=== PATIENT | female | born 1985 | race Hispanic/Latino ===

== ENCOUNTER 2018-12-18 10:45 | Inpatient (IN) | payer OTHER ==
[2018-12-18 10:49] VITALS: BMI 17.7
--- NOTE | 2018-12-18 11:12 | ED PDOC ---
HPI: Seizure Time Seen by Provider: 12/18/18 10:59 Chief Complaint (Nursing): Seizure Chief Complaint (Provider): seizure History Per: Patient History/Exam Limitations: no limitations Recent Seizure Activity Began: Just Before Arrival Number Of Seizures: One Length Of Seizures (Duration): Minutes (2) Quality Of Seizure: Generalized Precipitating Factor(s): Other (possible etoh withdrawal) Associated Symptoms: denies: Injury As A Result Of Seizure Activity Severity: Moderate Additional Complaint(s): 33yo female states stopped drinking tuesday, her uncle was driving her to an outpatient rehab this morning when she had a seizure in the passenger seat of car, lasted approx 2 min, prior to seizure has perioral tingling then following seizure had confusion, now back to baseline. Denies injury or trauma from seizure. Denies drug use. Last drink was tuesday, prior to that heavy drinking for approx one week. Denies current headache, neck pain, extremity pain, abd pain or back pain. Past Medical History Reviewed: Historical Data, Nursing Documentation, Vital Signs Vital Signs: Last Vital Signs Temp 99.3 F 12/18/18 10:48 Pulse 111 H 12/18/18 10:48 Resp 20 12/18/18 10:48 BP 134/56 L 12/18/18 10:48 Pulse Ox 100 12/18/18 10:48 Primary Care Provider: FAMILY PROVIDER,NO - Medical History PMH: Anxiety, Depression - Surgical History Other surgeries: liver cancer surgery 5yrs ago, cleared - Family History Family History: States: Unknown Family Hx - Social History Current smoker - smoking cessation education provided: Yes Alcohol: > 2 Drinks/Day - Immunization History Hx Tetanus Toxoid Vaccination: Yes Hx Influenza Vaccination: No Hx Pneumococcal Vaccination: No - Home Medications Home Medications: Ambulatory Orders Medication Instructions Recorded No Known Home Med 12/18/18 - Allergies Allergies/Adverse Reactions: Allergies Allergy/AdvReac Type Severity Reaction Status Date / Time No Known Allergies Allergy Unverified 11/23/18 18:57 Review of Systems Constitutional: Negative for: Fever ENT: Negative for: Throat Pain Cardiovascular: Negative for: Chest Pain Respiratory: Negative for: Shortness of Breath Gastrointestinal: Negative for: Abdominal Pain Genitourinary Female: Negative for: Dysuria Skin: Negative for: Rash, Lesions Neurological: Positive for: Seizures, Dizziness. Negative for: Weakness, Numbness, Headache Physical Exam - Reviewed Nursing Documentation Reviewed: Yes Vital Signs Reviewed: Yes - Physical Exam Appears: Positive for: Non-toxic, No Acute Distress Head Exam: Positive for: ATRAUMATIC, NORMAL INSPECTION, NORMOCEPHALIC Skin: Positive for: Normal Color, Warm, DRY Eye Exam: Positive for: EOMI, Normal appearance, PERRL ENT: Positive for: Normal ENT Inspection Neck: Positive for: Normal, Painless ROM Cardiovascular/Chest: Positive for: Regular Rate, Rhythm Respiratory: Positive for: CNT, Normal Breath Sounds Gastrointestinal/Abdominal: Positive for: Soft. Negative for: Tenderness, Guarding Back: Positive for: Normal Inspection Extremity: Positive for: Normal ROM Neurological/Psych: Positive for: Awake, Alert, Normal Tone - Laboratory Results Result Diagrams: 12/18/18 11:30 12/18/18 11:30 - ECG ECG: Positive for: Interpreted By Sd ECG Rhythm: Positive for: Normal QRS, Normal ST Segment, Sinus Rhythm Rate: 99 O2 Sat by Pulse Oximetry: 100 Pulse Ox Interpretation: Normal - Radiology X-Ray: Interpreted by Sd X-Ray Interpretation: No Acute Disease Medical Decision Making Medical Decision Making: workup for new onset seizure in setting of alcohol abuse/dependence with recent cessation of etoh, likely etoh withdrawal seizure CT brain labs EKG seizure precautions Ativan 1mg IV ordered approx 140p alerted by RN that patient actively seizing, found patient genera lized tonic clonic seizure lasting approx 90seconds, SPO2 94%, return to baseline over several minutes, confused but denies extremity pain, notes headache. CIWA score 10 CT brain report reviewed additional ativan 1mg and tylenol ordered admit Dr Bonds for recurrent seizures neuro Dr Salmeron consulted Patient and uncle updated on findings and recommendations, questions answered, she requested social work eval for warm handoff to her [facility] rehab program. approx 545p pt due to go to floor, alerted by RN she has fever, sepsis workup initiated, lactate normal On exam, she now has visible aniscoria R>L pupils with sluggish reaction. She notes headache when she coughs, denies change vision, neck pain, photophobia and is alert/oriented. Mother arrived and updated after patient permission. Discussed with Dr Salmeron, rec repeat CT and CTA r/o SAH and consider LP given recurrent seizures now fever. 1934 FINDINGS: VASCULATURE: NECK: COMMON CAROTID ARTERIES No significant canal stenosis. No dissection or occlusion. EXTERNAL CAROTID ARTERIES Patent. NECK: INTERNAL CAROTID ARTERIES No stenosis by NASCET criteria. No dissection or occlusion. VERTEBRAL ARTERIES No significant canal stenosis. No dissection or occlusion. HEAD: ANTERIOR CEREBRAL ARTERIES No significant stenosis. No occlusion. No aneurysm. MIDDLE CEREBRAL ARTERIES No significant stenosis. No occlusion. No aneurysm. POSTERIOR CEREBRAL ARTERIES No significant stenosis. No occlusion. No aneurysm. BASILAR ARTERY No significant stenosis. No occlusion. No aneurysm. OTHER: SOFT TISSUES No acute finding. BONES No acute osseous abnormality. IMPRESSION: Unremarkable CTA of the head and neck. Procedure note Lumbar puncture indication - fever, seizure, aniscoria d/w neurology, agrees w plan consent obtained from patient after risks benefits alternatives explained patient is AAOx3 and mother also in room, agrees w plan using sterile technique, chlorhexidine then betadine rinse, L3L4 interspace anesthetized w 4ml lidocaine spinal needle inserted w immediate return of CSF, clear, 4 tubes collected patient placed supine CSF Sent to lab CXR negative for infiltrate UA negative for leuks or WBC Dr Bonds updated on plan Dr Archer to initiate Abx based on CSF results Dr Ellison to eval for need for ICU overnight in ED 830p critical care time 70minutes excluding procedures patient required immediate recurrent bedside attention due to recurrent seizures, then fever r/o sepsis, meningitis Disposition - Clinical Impression Clinical Impression: Alcohol withdrawal seizure, Recurrent seizures, Fever - Patient ED Disposition Is Patient to be Admitted: Yes Counseled Patient/Family Regarding: Studies Performed, Diagnosis, Need For Followup - Disposition Disposition Time: 13:00 Condition: FAIR - Pt Status Changed To: Hospital Disposition Of: Inpatient - Admit Certification Admit to Inpatient:: After my assessment, the patient will require hospitalization for at least two midnights. This is because of the severity of symptoms shown, intensity of services needed, and/or the medical risk in this patient being treated as an outpatient. - POA Present On Arrival: None
[2018-12-18 12:00] LABS: PARTIAL THROMBOPLASTIN TIME 31.3 Seconds (25.6-37.1)
[2018-12-18 12:01] LABS: BASO % 1.1 % (0.0-2.0); EOS % 0.3 % (0.0-4.0); HEMOGLOBIN 13.1 g/dL (12.0-16.0); LYMPH # 0.4 K/uL (1.0-4.3); MEAN CELL VOLUME 89.4 fl (81.0-99.0); MEAN CORPUSCULAR HEMOGLOBIN 29.6 pg (27.0-31.0); MEAN CORPUSCULAR HGB CONC 33.2 g/dL (33.0-37.0); MEAN PLATELET VOLUME 6.8 fl (7.2-11.7); MONO # 0.6 K/uL (0.0-0.8); MONO % 14.9 % (0.0-10.0); NEUT # 2.9 K/uL (1.8-7.0); NEUT % 73.7 % (50.0-75.0); RBC 4.42 Mil/uL (3.80-5.20); RED CELL DISTRIBUTION WIDTH 15.7 % (11.5-14.5)
[2018-12-18 12:03] LABS: ALB/GLOB RATIO 1.6 (1.0-2.1); ALBUMIN 4.7 g/dL (3.5-5.0); ALT/SGPT 36 U/L (9-52); AST/SGOT 52 U/L (14-36); BLOOD UREA NITROGEN 3 mg/dl (7-17); CALCIUM 9.2 mg/dL (8.4-10.2); GFR NON-AFRICAN AMERICAN > 60; LIPASE 300 U/L (23-300)
--- NOTE | 2018-12-18 12:05 | CT ---
Date of service: 12/18/2018 PROCEDURE: CT HEAD WITHOUT CONTRAST. HISTORY: new onset seizure etoh abuse COMPARISON: None available. TECHNIQUE: Axial computed tomography images were obtained through the head/brain without intravenous contrast. Radiation dose: Total exam DLP = 802.63 mGy-cm. This CT exam was performed using one or more of the following dose reduction techniques: Automated exposure control, adjustment of the mA and/or kV according to patient size, and/or use of iterative reconstruction technique. FINDINGS: HEMORRHAGE: No intracranial hemorrhage. BRAIN: Normal mendoza-white matter differentiation and density are appreciated throughout the cerebrum and cerebellum with the brainstem appearing unremarkable as well. There is no mass effect. There is no suspicious extra-axial fluid collection and the midline brain anatomy appears diffusely unremarkable. VENTRICLES: Unremarkable. No hydrocephalus. CALVARIUM: No destructive bony lesion or displaced fracture identified including through the skullbase. PARANASAL SINUSES: Unremarkable as visualized. No significant inflammatory changes. MASTOID AIR CELLS: Unremarkable as visualized. No inflammatory changes. OTHER FINDINGS: None. IMPRESSION: Unremarkable unenhanced head CT.
[2018-12-18 18:11] LABS: SQUAMOUS EPITHIAL < 1 /hpf (0-5); URINE BACTERIA RARE (<OCC); URINE BILIRUBIN NEGATIVE (NEGATIVE); URINE BLOOD NEGATIVE (NEGATIVE); URINE CLARITY CLOUDY (Clear); URINE COLOR YELLOW (YELLOW); URINE GLUCOSE (UA) NEG (NEGATIVE); URINE LEUKOCYTE ESTERASE NEG Leu/uL (Negative); URINE PROTEIN 100 mg/dL (NEGATIVE); URINE UROBILINOGEN 0.2-1.0 mg/dL (0.2-1.0)
[2018-12-18 18:15] LABS: VENOUS BLOOD GAS BASE EXCESS 0.4 mmol/L (0.0-2.0); VENOUS BLOOD GAS PCO2 30 mmHg (40-60); VENOUS BLOOD GAS PO2 57 mm/Hg (30-55); VENOUS BLOOD PH 7.49 (7.32-7.43)
[2018-12-18] MEDS ORDERED: Iodixanol 320 MG/ML 100 ML BOTTLE IV ONE (18:27)
[2018-12-18] MEDS ORDERED: Sodium Chloride 0.9% 50 ML IV ONE (18:27)
--- NOTE | 2018-12-18 18:56 | CT ---
Date of service: 12/18/2018 PROCEDURE: CT HEAD WITHOUT CONTRAST. HISTORY: recurrent seizure, aniscoria, fever COMPARISON: None available. TECHNIQUE: Axial computed tomography images were obtained through the head/brain without intravenous contrast. Radiation dose: Total exam DLP = 806.5 mGy-cm. This CT exam was performed using one or more of the following dose reduction techniques: Automated exposure control, adjustment of the mA and/or kV according to patient size, and/or use of iterative reconstruction technique. FINDINGS: HEMORRHAGE: No intracranial hemorrhage. BRAIN: No mass effect or edema. The mendoza-white matter differentiation appears intact. Please note that MRI with diffusion imaging is more sensitive in the detection of acute ischemic event. VENTRICLES: No hydrocephalus. CALVARIUM: Unremarkable. PARANASAL SINUSES: Unremarkable as visualized. No significant inflammatory changes. MASTOID AIR CELLS: Unremarkable as visualized. No inflammatory changes. OTHER FINDINGS: None. IMPRESSION: No acute intracranial pathology identified.
[2018-12-18] MEDS ORDERED: Sodium Chloride 0.9% 1,000 ML IV STA (20:25)
[2018-12-18 20:44] LABS: FLUID TYPE SPINAL FLUID
[2018-12-18 20:59] LABS: CSF APPEARANCE CLEAR/COLORLESS (CLEAR); CSF VOLUME 1 mL (0-1)
[2018-12-18] MEDS ORDERED: Piperacillin/Tazobact 3.375 GM in Sodium Chloride 0.9% 100 ML IVPB STA (21:19)
[2018-12-18] MEDS ORDERED: Piperacillin/Tazobact 3.375 gm Inj IVPB ONE (21:38)
--- NOTE | 2018-12-18 23:13 | CP.CCUPN ---
CCU Subjective - Physician Review Events Since Last Encounter (Free Text): 12/18/18 22:57 33 yo CF with hx of heavy alcohol use stopped drinking last Tuesday and was in the car with family member to rehab when she had a witnessed 2 min GTC seizure following which she was confused. Upon arrival to ED pretty much back to normal; however, while awaiting floor bed had another episode of GTC seizure requiring IV Ativan and also spiked temp of 101.4 F and became tachycardic to 130s/min. LP was done and critical care eval was requested by admitting physician. Had a couple of negative CT scans of head without contrast. CTA head and neck also came back negative. CXR I personally reviewed did not reveal any acute patholo gy. Upon my assessment patient is slightly drowsy but arousible and AAOx3 and neuro-exam completely non-focal. Only c/o mild headache after LP. LP results normal. Re-assessed her in the ED. Stable and exam unchanged. My impression is Seizure in the context of EtOH withdrawal. No evidence of DTs at this time. No need for ICU. Can be admitted to tele floor. Needs frequent neuro-checks and seizure precautions. Agree with BZD. As far as sepsis no clear source at this time. On exam has faint crackles over RLL. Possible aspiration. Agree with Jewels for now and ID consult to assist with antibiotic therapy. Mother at bedside and findings and plan was discussed with her. I spent total of 33 min of critical care time today excluding time spent for any procedures. Critical Care Time Spent (in minutes): 33 CCU Objective - Vital Signs / Intake & Output Vital Signs (Last 4 hours): Vital Signs Temp Pulse Resp BP Pulse Ox 12/18/18 20:38 99 H 100 12/18/18 19:30 98.3 F 109 H 18 112/66 100 12/18/18 19:00 101 F H 119 H 18 119/68 100 Intake and Output (Last 8hrs): Intake & Output 12/18/18 12/18/18 12/18/18 06:59 14:59 22:59 Weight 110 lb - Medications Active Medications: Active Medications Generic Name Dose Route Start Last Admin Trade Name Freq PRN Reason Stop Dose Admin Sodium Chloride 1,000 mls @ 150 mls/hr 12/18/18 20:25 12/18/18 21:51 Sodium Chloride 0.9% IV 12/19/18 03:04 150 mls/hr .[id number] STA Administration - Patient Studies Lab Studies: Microbiology Studies 12/18/18 20:38 Gram Stain - Preliminary Cerebral Spinal Fluid Lab Studies 12/18/18 12/18/18 12/18/18 Range/Units 20:38 20:38 18:13 WBC (4.8-10.8) K/uL RBC (3.80-5.20) Mil/uL Hgb (12.0-16.0) g/dL Hct (34.0-47.0) % MCV (81.0-99.0) fl MCH (27.0-31.0) pg MCHC (33.0-37.0) g/dL RDW (11.5-14.5) % Plt Count (130-400) K/uL MPV (7.2-11.7) fl Neut % (Auto) (50.0-75.0) % Lymph % (Auto) (20.0-40.0) % Cannon % (Auto) (0.0-10.0) % Eos % (Auto) (0.0-4.0) % Baso % (Auto) (0.0-2.0) % Neut # (Auto) (1.8-7.0) K/uL Lymph # (Auto) (1.0-4.3) K/uL Cannon # (Auto) (0.0-0.8) K/uL Eos # (Auto) (0.0-0.7) K/uL Baso # (Auto) (0.0-0.2) K/uL PT (9.8-13.1) Seconds INR APTT (25.6-37.1) Seconds pO2 57 H (30-55) mm/Hg VBG pH 7.49 H (7.32-7.43) VBG pCO2 30 L (40-60) mmHg VBG HCO3 25.1 mmol/L VBG Total CO2 23.8 (22-28) mmol/L VBG O2 Sat (Calc) 95.0 H (40-65) % VBG Base Excess 0.4 (0.0-2.0) mmol/L VBG Potassium 3.5 L (3.6-5.2) mmol/L Glucose 114 H (65-105) mg/dL Lactate 0.9 (0.7-2.1) mmol/L FiO2 21.0 % Sodium 132.0 (132-148) mmol/l Potassium (3.6-5.0) MMOL/L Chloride 100.0 (98-107) mmol/L Carbon Dioxide (22-30) mmol/L Anion Gap (10-20) BUN (7-17) mg/dl Creatinine (0.7-1.2) mg/dl Est GFR ( Amer) Est GFR (Non-Af Amer) POC Glucose (mg/dL) (65-110) mg/dL Random Glucose (65-105) mg/dL Calcium (8.4-10.2) mg/dL Total Bilirubin (0.2-1.3) mg/dl AST (14-36) U/L ALT (9-52) U/L Alkaline Phosphatase (38-126) U/L Troponin I (0.00-0.120) ng/mL Total Protein (6.3-8.2) G/DL Albumin (3.5-5.0) g/dL Globulin (2.2-3.9) gm/dL Albumin/Globulin Ratio (1.0-2.1) Lipase (23-300) U/L Venous Blood Potassium 3.5 L (3.6-5.2) mmol/L Urine Color (YELLOW) Urine Clarity (Clear) Urine pH (5.0-8.0) Ur Specific Holcomb (1.003-1.030) Urine Protein (NEGATIVE) mg/dL Urine Glucose (UA) (NEGATIVE) mg/dL Urine Ketones (NEGATIVE) mg/dL Urine Blood (NEGATIVE) Urine Nitrate (NEGATIVE) Urine Bilirubin (NEGATIVE) Urine Urobilinogen (0.2-1.0) mg/dL Ur Leukocyte Esterase (Negative) Nikko/uL Urine RBC (Auto) (0-3) /hpf Urine Microscopic WBC (0-5) /hpf Ur Squamous Epith Cells (0-5) /hpf Urine Bacteria (<OCC) Hyaline Casts (0-2) /hpf Fluid Type Spinal fluid CSF Volume 1 (0-1) mL CSF Appearance Clear/colorless (CLEAR) CSF WBC 0.0 (0.0-5.0) /mm3 CSF RBC 0.0 (0.0-0.0) /mm3 CSF Total Cell Counted 0 (0-0) CSF Monos/Macrophages TEST NOT PERFORMED CSF Comment Normal CSF Glucose 70 (40-70) mg/dL CSF Total Protein 26.0 (12-60) mg/dL Alcohol, Quantitative (0-10) mg/dl 12/18/18 12/18/18 12/18/18 Range/Units 17:50 11:30 11:30 WBC 4.0 L (4.8-10.8) K/uL RBC 4.42 (3.80-5.20) Mil/uL Hgb 13.1 (12.0-16.0) g/dL Hct 39.5 (34.0-47.0) % MCV 89.4 (81.0-99.0) fl MCH 29.6 (27.0-31.0) pg MCHC 33.2 (33.0-37.0) g/dL RDW 15.7 H (11.5-14.5) % Plt Count 231 (130-400) K/uL MPV 6.8 L (7.2-11.7) fl Neut % (Auto) 73.7 (50.0-75.0) % Lymph % (Auto) 10.0 L (20.0-40.0) % Cannon % (Auto) 14.9 H (0.0-10.0) % Eos % (Auto) 0.3 (0.0-4.0) % Baso % (Auto) 1.1 (0.0-2.0) % Neut # (Auto) 2.9 (1.8-7.0) K/uL Lymph # (Auto) 0.4 L (1.0-4.3) K/uL Cannon # (Auto) 0.6 (0.0-0.8) K/uL Eos # (Auto) 0.0 (0.0-0.7) K/uL Baso # (Auto) 0.0 (0.0-0.2) K/uL PT 11.0 (9.8-13.1) Seconds INR 1.0 APTT 31.3 (25.6-37.1) Seconds pO2 (30-55) mm/Hg VBG pH (7.32-7.43) VBG pCO2 (40-60) mmHg VBG HCO3 mmol/L VBG Total CO2 (22-28) mmol/L VBG O2 Sat (Calc) (40-65) % VBG Base Excess (0.0-2.0) mmol/L VBG Potassium (3.6-5.2) mmol/L Glucose (65-105) mg/dL Lactate (0.7-2.1) mmol/L FiO2 % Sodium (132-148) mmol/l Potassium (3.6-5.0) MMOL/L Chloride (98-107) mmol/L Carbon Dioxide (22-30) mmol/L Anion Gap (10-20) BUN (7-17) mg/dl Creatinine (0.7-1.2) mg/dl Est GFR ( Amer) Est GFR (Non-Af Amer) POC Glucose (mg/dL) (65-110) mg/dL Random Glucose (65-105) mg/dL Calcium (8.4-10.2) mg/dL Total Bilirubin (0.2-1.3) mg/dl AST (14-36) U/L ALT (9-52) U/L Alkaline Phosphatase (38-126) U/L Troponin I (0.00-0.120) ng/mL Total Protein (6.3-8.2) G/DL Albumin (3.5-5.0) g/dL Globulin (2.2-3.9) gm/dL Albumin/Globulin Ratio (1.0-2.1) Lipase (23-300) U/L Venous Blood Potassium (3.6-5.2) mmol/L Urine Color Yellow (YELLOW) Urine Clarity Cloudy (Clear) Urine pH 9.0 (5.0-8.0) Ur Specific Holcomb 1.010 (1.003-1.030) Urine Protein 100 (NEGATIVE) mg/dL Urine Glucose (UA) Neg (NEGATIVE) mg/dL Urine Ketones Negative (NEGATIVE) mg/dL Urine Blood Negative (NEGATIVE) Urine Nitrate Negative (NEGATIVE) Urine Bilirubin Negative (NEGATIVE) Urine Urobilinogen 0.2-1.0 (0.2-1.0) mg/dL Ur Leukocyte Esterase Neg (Negative) Nikko/uL Urine RBC (Auto) 1 (0-3) /hpf Urine Microscopic WBC 1 (0-5) /hpf Ur Squamous Epith Cells < 1 (0-5) /hpf Urine Bacteria Rare (<OCC) Hyaline Casts 6-10 H (0-2) /hpf Fluid Type CSF Volume (0-1) mL CSF Appearance (CLEAR) CSF WBC (0.0-5.0) /mm3 CSF RBC (0.0-0.0) /mm3 CSF Total Cell Counted (0-0) CSF Monos/Macrophages CSF Comment CSF Glucose (40-70) mg/dL CSF Total Protein (12-60) mg/dL Alcohol, Quantitative (0-10) mg/dl 12/18/18 12/18/18 Range/Units 11:30 11:03 WBC (4.8-10.8) K/uL RBC (3.80-5.20) Mil/uL Hgb (12.0-16.0) g/dL Hct (34.0-47.0) % MCV (81.0-99.0) fl MCH (27.0-31.0) pg MCHC (33.0-37.0) g/dL RDW (11.5-14.5) % Plt Count (130-400) K/uL MPV (7.2-11.7) fl Neut % (Auto) (50.0-75.0) % Lymph % (Auto) (20.0-40.0) % Cannon % (Auto) (0.0-10.0) % Eos % (Auto) (0.0-4.0) % Baso % (Auto) (0.0-2.0) % Neut # (Auto) (1.8-7.0) K/uL Lymph # (Auto) (1.0-4.3) K/uL Cannon # (Auto) (0.0-0.8) K/uL Eos # (Auto) (0.0-0.7) K/uL Baso # (Auto) (0.0-0.2) K/uL PT (9.8-13.1) Seconds INR APTT (25.6-37.1) Seconds pO2 (30-55) mm/Hg VBG pH (7.32-7.43) VBG pCO2 (40-60) mmHg VBG HCO3 mmol/L VBG Total CO2 (22-28) mmol/L VBG O2 Sat (Calc) (40-65) % VBG Base Excess (0.0-2.0) mmol/L VBG Potassium (3.6-5.2) mmol/L Glucose (65-105) mg/dL Lactate (0.7-2.1) mmol/L FiO2 % Sodium 134 (132-148) mmol/l Potassium 3.5 L (3.6-5.0) MMOL/L Chloride 97 L (98-107) mmol/L Carbon Dioxide 28 (22-30) mmol/L Anion Gap 13 (10-20) BUN 3 L (7-17) mg/dl Creatinine 0.5 L (0.7-1.2) mg/dl Est GFR ( Amer) > 60 Est GFR (Non-Af Amer) > 60 POC Glucose (mg/dL) 131 H (65-110) mg/dL Random Glucose 101 (65-105) mg/dL Calcium 9.2 (8.4-10.2) mg/dL Total Bilirubin 1.0 (0.2-1.3) mg/dl AST 52 H (14-36) U/L ALT 36 (9-52) U/L Alkaline Phosphatase 77 (38-126) U/L Troponin I < 0.0120 (0.00-0.120) ng/mL Total Protein 7.5 (6.3-8.2) G/DL Albumin 4.7 (3.5-5.0) g/dL Globulin 2.8 (2.2-3.9) gm/dL Albumin/Globulin Ratio 1.6 (1.0-2.1) Lipase 300 (23-300) U/L Venous Blood Potassium (3.6-5.2) mmol/L Urine Color (YELLOW) Urine Clarity (Clear) Urine pH (5.0-8.0) Ur Specific Holcomb (1.003-1.030) Urine Protein (NEGATIVE) mg/dL Urine Glucose (UA) (NEGATIVE) mg/dL Urine Ketones (NEGATIVE) mg/dL Urine Blood (NEGATIVE) Urine Nitrate (NEGATIVE) Urine Bilirubin (NEGATIVE) Urine Urobilinogen (0.2-1.0) mg/dL Ur Leukocyte Esterase (Negative) Nikko/uL Urine RBC (Auto) (0-3) /hpf Urine Microscopic WBC (0-5) /hpf Ur Squamous Epith Cells (0-5) /hpf Urine Bacteria (<OCC) Hyaline Casts (0-2) /hpf Fluid Type CSF Volume (0-1) mL CSF Appearance (CLEAR) CSF WBC (0.0-5.0) /mm3 CSF RBC (0.0-0.0) /mm3 CSF Total Cell Counted (0-0) CSF Monos/Macrophages CSF Comment CSF Glucose (40-70) mg/dL CSF Total Protein (12-60) mg/dL Alcohol, Quantitative < 10 (0-10) mg/dl Laboratory Results - last 24 hr 12/18/18 12/18/18 12/18/18 11:03 11:30 11:30 WBC 4.0 L RBC 4.42 Hgb 13.1 Hct 39.5 MCV 89.4 MCH 29.6 MCHC 33.2 RDW 15.7 H Plt Count 231 MPV 6.8 L Neut % (Auto) 73.7 Lymph % (Auto) 10.0 L Cannon % (Auto) 14.9 H Eos % (Auto) 0.3 Baso % (Auto) 1.1 Neut # (Auto) 2.9 Lymph # (Auto) 0.4 L Cannon # (Auto) 0.6 Eos # (Auto) 0.0 Baso # (Auto) 0.0 PT INR APTT pO2 VBG pH VBG pCO2 VBG HCO3 VBG Total CO2 VBG O2 Sat (Calc) VBG Base Excess VBG Potassium Glucose Lactate FiO2 Sodium 134 Potassium 3.5 L Chloride 97 L Carbon Dioxide 28 Anion Gap 13 BUN 3 L Creatinine 0.5 L Est GFR ( Amer) > 60 Est GFR (Non-Af Amer) > 60 POC Glucose (mg/dL) 131 H Random Glucose 101 Calcium 9.2 Total Bilirubin 1.0 AST 52 H ALT 36 Alkaline Phosphatase 77 Troponin I < 0.0120 Total Protein 7.5 Albumin 4.7 Globulin 2.8 Albumin/Globulin Ratio 1.6 Lipase 300 Venous Blood Potassium Urine Color Urine Clarity Urine pH Ur Specific Holcomb Urine Protein Urine Glucose (UA) Urine Ketones Urine Blood Urine Nitrate Urine Bilirubin Urine Urobilinogen Ur Leukocyte Esterase Urine RBC (Auto) Urine Microscopic WBC Ur Squamous Epith Cells Urine Bacteria Hyaline Casts Fluid Type CSF Volume CSF Appearance CSF WBC CSF RBC CSF Total Cell Counted CSF Monos/Macrophages CSF Comment CSF Glucose CSF Total Protein Alcohol, Quantitative < 10 12/18/18 12/18/18 12/18/18 11:30 17:50 18:13 WBC RBC Hgb Hct MCV MCH MCHC RDW Plt Count MPV Neut % (Auto) Lymph % (Auto) Cannon % (Auto) Eos % (Auto) Baso % (Auto) Neut # (Auto) Lymph # (Auto) Cannon # (Auto) Eos # (Auto) Baso # (Auto) PT 11.0 INR 1.0 APTT 31.3 pO2 57 H VBG pH 7.49 H VBG pCO2 30 L VBG HCO3 25.1 VBG Total CO2 23.8 VBG O2 Sat (Calc) 95.0 H VBG Base Excess 0.4 VBG Potassium 3.5 L Glucose 114 H Lactate 0.9 FiO2 21.0 Sodium 132.0 Potassium Chloride 100.0 Carbon Dioxide Anion Gap BUN Creatinine Est GFR ( Amer) Est GFR (Non-Af Amer) POC Glucose (mg/dL) Random Glucose Calcium Total Bilirubin AST ALT Alkaline Phosphatase Troponin I Total Protein Albumin Globulin Albumin/Globulin Ratio Lipase Venous Blood Potassium 3.5 L Urine Color Yellow Urine Clarity Cloudy Urine pH 9.0 Ur Specific Holcomb 1.010 Urine Protein 100 Urine Glucose (UA) Neg Urine Ketones Negative Urine Blood Negative Urine Nitrate Negative Urine Bilirubin Negative Urine Urobilinogen 0.2-1.0 Ur Leukocyte Esterase Neg Urine RBC (Auto) 1 Urine Microscopic WBC 1 Ur Squamous Epith Cells < 1 Urine Bacteria Rare Hyaline Casts 6-10 H Fluid Type CSF Volume CSF Appearance CSF WBC CSF RBC CSF Total Cell Counted CSF Monos/Macrophages CSF Comment CSF Glucose CSF Total Protein Alcohol, Quantitative 12/18/18 12/18/18 20:38 20:38 WBC RBC Hgb Hct MCV MCH MCHC RDW Plt Count MPV Neut % (Auto) Lymph % (Auto) Cannon % (Auto) Eos % (Auto) Baso % (Auto) Neut # (Auto) Lymph # (Auto) Cannon # (Auto) Eos # (Auto) Baso # (Auto) PT INR APTT pO2 VBG pH VBG pCO2 VBG HCO3 VBG Total CO2 VBG O2 Sat (Calc) VBG Base Excess VBG Potassium Glucose Lactate FiO2 Sodium Potassium Chloride Carbon Dioxide Anion Gap BUN Creatinine Est GFR ( Amer) Est GFR (Non-Af Amer) POC Glucose (mg/dL) Random Glucose Calcium Total Bilirubin AST ALT Alkaline Phosphatase Troponin I Total Protein Albumin Globulin Albumin/Globulin Ratio Lipase Venous Blood Potassium Urine Color Urine Clarity Urine pH Ur Specific Holcomb Urine Protein Urine Glucose (UA) Urine Ketones Urine Blood Urine Nitrate Urine Bilirubin Urine Urobilinogen Ur Leukocyte Esterase Urine RBC (Auto) Urine Microscopic WBC Ur Squamous Epith Cells Urine Bacteria Hyaline Casts Fluid Type Spinal fluid CSF Volume 1 CSF Appearance Clear/colorless CSF WBC 0.0 CSF RBC 0.0 CSF Total Cell Counted 0 CSF Monos/Macrophages TEST NOT PERFORMED CSF Comment Normal CSF Glucose 70 CSF Total Protein 26.0 Alcohol, Quantitative Radiology Impressions: Radiology Impressions Head CT 12/18/18 11:08 IMPRESSION: Unremarkable unenhanced head CT. Head CT 12/18/18 18:00 IMPRESSION: No acute intracranial pathology identified. Fingerstick Blood Sugar Results: 131
[2018-12-19] MEDS ORDERED: Sodium Chloride 0.9% 1,000 ML IV SCH (01:30)
[2018-12-19 04:40] VITALS: RESP 18
--- NOTE | 2018-12-19 05:38 | HP ---
HISTORY OF PRESENT ILLNESS: The patient is a 33-year-old female with no significant past medical history. The patient has been drinking alcohol heavily for the last one year or so after some social problems. The patient was picked up by her uncle on the day of admission to bring her to an alcohol rehabilitation center. During the ride in the car, the patient had a seizure. The patient was brought to emergency room for evaluation, and she had a second seizure. The patient was treated with Ativan. CAT scan of the head was done that was negative and admitted for alcohol withdrawal seizures. Other review of system is negative. ALLERGIES: NO KNOWN ALLERGIES. MEDICATIONS: None. PAST MEDICAL HISTORY: Not significant. SOCIAL HISTORY: Positive for alcohol abuse. Denied other substance abuse. FAMILY HISTORY: Noncontributory. PHYSICAL EXAMINATION: GENERAL: The patient was lethargic but awake and oriented x2. VITAL SIGNS: Blood pressure 112/74, temperature 98, respiratory rate 17, and pulse 112. HEENT: Pupils are equal and reactive to light. Normal-appearing mucosa of the conjunctivae, oropharynx and nasal membrane mucosa. NECK: Supple. No JVD. No carotid bruit. No lymph node. No thyromegaly. CHEST AND LUNGS: Bilateral symmetrical expansion. Good air exchange. No rales. No rhonchi. CARDIOVASCULAR SYSTEM: PMI not localized. S1, S2. No additional sounds. ABDOMEN: Normoactive bowel sounds. No tenderness. No organomegaly. No masses. EXTREMITIES: No cyanosis. No clubbing. No edema. CENTRAL NERVOUS SYSTEM: Alert, awake, oriented x2 and moves all extremities equally. ASSESSMENT: 1. Alcohol withdrawal seizure. 2. Alcohol abuse. PLAN: We will do seizure precaution and DT precaution. We will give the patient Ativan as needed. Admit the patient to telemetry floor for monitoring. Hari Bonds MD
[2018-12-19] MEDS ORDERED: Pneumococcal 23-Valent Vaccine IM ONE (06:00)
--- NOTE | 2018-12-19 08:31 | RAD ---
Date of service: 12/18/2018 HISTORY: fever COMPARISON: No prior. TECHNIQUE: 1 view obtained. FINDINGS: LUNGS: No active pulmonary disease. PLEURA: No significant pleural effusion identified, no pneumothorax apparent. CARDIOVASCULAR: No aortic atherosclerotic calcification present. Normal cardiac size. No pulmonary vascular congestion. OSSEOUS STRUCTURES: No significant abnormalities. VISUALIZED UPPER ABDOMEN: Incidental excretion of iodinated contrast material is identified at the left kidney with multiple surgical clips identified at the epigastric region in the abdomen. OTHER FINDINGS: None. IMPRESSION: No acute cardiopulmonary disease appreciated.
[2018-12-19] MEDS ORDERED: Multivitamin With Minerals Tab PO SCH (09:00)
--- NOTE | 2018-12-19 10:56 | CP.PCM.CON ---
History of Present Illness - History of Present Illness History of Present Illness: Neurology Consultation Note Consultation Requested by Dr. Patterson Ms. Kumar is a 33 y/o female with a PMHx of Depression, Anxiety, liver tumor (diagnosed at age 16, removed approx 5 years ago), and alcohol abuse. She was admitted to [facility] for an alcohol withdrawal seizure. Pt's seizure was witnessed by her uncle, who was driving her to an outpatient rehab center ([facility]) for ETOH abuse. Per her uncle who is at bedside today, her whole body began to shake, her head was tilted back, and she wouldn't respond to him. This lasted approx 1 minute, and afterwards she woke up confused. Pt admits to biting her bottom lip and the inside of her cheeks. When she came to the ED yesterday, she was back to baseline. Pt and uncle admit that her last drink was on Tuesday (1 glass of wine). She normally drink 2 glasses of wine to 1 bottle of wine per day; she states that some days she drinks heavier than other day. Last week she admits to drinking heavily, including last and Tuesday. Pt states that she has never had a seizure before. She started drinking at age 17. Today she states that she feels body aches and soreness to the bottom lip and inside of her cheeks. She does have a mild h/a but she states it is better than yesterday. She is though awake, alert, follows all commands and is back to her normal baseline. LMP was 3-4 days ago. Non-contrast CT Head and CTA Head and Neck done in the ED reviewed and are both unremarkable. Labs and CSF results reviewed. Pt currently denies dizziness, visual changes, chest pain, palpitations, sob, cough, dysuria, abd pain, n/v/d, fever/chills, paresthesias, tremors/shakiness. Neurology has been called to assist in the management of this pt. Review of Systems - Constitutional Constitutional: As Per HPI - EENT Eyes: As Per HPI Ears: As Per HPI Nose/Mouth/Throat: As Per HPI - Breasts Breasts: As Per HPI - Cardiovascular Cardiovascular: As Per HPI - Respiratory Respiratory: As Per HPI - Gastrointestinal Gastrointestinal: As Per HPI - Genitourinary Genitourinary: As Per HPI - Reproductive: Female Reproductive:Female: As Per HPI - Menstruation Menstruation: As Per HPI - Musculoskeletal Musculoskeletal: As Per HPI - Integumentary Integumentary: As Per HPI - Neurological Neurological: As Per HPI - Psychiatric Psychiatric: As Per HPI - Endocrine Endocrine: As Per HPI - Hematologic/Lymphatic Hematologic: As Per HPI Past Patient History - Infectious Disease Hx of Infectious Diseases: None - Tetanus Immunizations Tetanus Immunization: Unknown - Past Medical History & Family History Past Medical History?: Yes Past Family History: Reviewed and not pertinent - Past Social History Smoking Status: Never Smoked Chewing Tobacco Use: No Cigar Use: No Occupation: unemployed Alcohol: > 2 Drinks/Day Drugs: Denies Home Situation {Lives}: With Family Domestic Violence: Negative - CARDIAC Hx Cardiac Disorders: No - PULMONARY Hx Respiratory Disorders: No - NEUROLOGICAL Hx Neurological Disorder: No - HEENT Hx HEENT Problems: No - RENAL Hx Chronic Kidney Disease: No - ENDOCRINE/METABOLIC Hx Endocrine Disorders: No - HEMATOLOGICAL/ONCOLOGICAL Hx Cancer: Yes (liver tumor) - INTEGUMENTARY Hx Dermatological Problems: No - MUSCULOSKELETAL/RHEUMATOLOGICAL Hx Musculoskeletal Disorders: No Hx Falls: No - GASTROINTESTINAL Hx Gastrointestinal Disorders: No - GENITOURINARY/GYNECOLOGICAL Hx Genitourinary Disorders: No - PSYCHIATRIC Hx Psychophysiologic Disorder: Yes Hx Anxiety: Yes Hx Depression: Yes - SURGICAL HISTORY Other/Comment: Liver resection 5 years ago - ANESTHESIA Hx Anesthesia: Yes Hx Anesthesia Reactions: No Meds Allergies/Adverse Reactions: Allergies Allergy/AdvReac Type Severity Reaction Status Date / Time No Known Allergies Allergy Unverified 11/23/18 18:57 - Medications Medications: Current Medications Sodium Chloride (Sodium Chloride 0.9%) 1,000 mls @ 100 mls/hr IV .Q10H [facility] Stop: 12/20/18 01:25 Last Admin: 12/19/18 01:30 Dose: 100 mls/hr Lorazepam (Ativan) 2 mg IVP Q2 PRN PRN Reason: Agitation Multivitamins/Minerals (Therapeutic-M Tab) 1 tab PO DAILY [facility] Last Admin: 12/19/18 09:15 Dose: 1 tab Thiamine HCl (Vitamin B1 Tab) 100 mg PO DAILY [facility] Last Admin: 12/19/18 09:15 Dose: 100 mg Physical Exam - Constitutional Appears: Well, Non-toxic, No Acute Distress - Head Exam Head Exam: ATRAUMATIC, NORMAL INSPECTION, NORMOCEPHALIC - Eye Exam Eye Exam: EOMI, Normal appearance, PERRL. absent: Nystagmus Pupil Exam: NORMAL ACCOMODATION, PERRL - ENT Exam ENT Exam: Mucous Membranes Moist, Normal Exam Additional comments: bottom lip swollen inside of cheeks bitten - Neck Exam Neck exam: Positive for: Full Rom, Normal Inspection - Respiratory Exam Respiratory Exam: NORMAL BREATHING PATTERN. absent: Respiratory Distress - Cardiovascular Exam Cardiovascular Exam: REGULAR RHYTHM. absent: Tachycardia - GI/Abdominal Exam GI & Abdominal Exam: Normal Bowel Sounds, Soft. absent: Tenderness - Extremities Exam Extremities exam: Positive for: full ROM, normal inspection. Negative for: calf tenderness, pedal edema - Back Exam Back exam: FULL ROM, NORMAL INSPECTION - Neurological Exam Neurological exam: Alert, CN II-XII Intact, Normal Gait, Oriented x3, Reflexes Normal Additional comments: Follows all commands; answers appropriately. Speech clear, fluid. No motor or sensory deficits noted. No tremors or abnormal movements noted. Gait steady. - Psychiatric Exam Psychiatric exam: Normal Affect, Normal Mood - Skin Skin Exam: Dry, Intact, Normal Color Results - Vital Signs Recent Vital Signs: Last Vital Signs Temp 98.0 F 12/19/18 08:10 Pulse 78 12/19/18 08:10 Resp 18 12/19/18 08:10 BP 116/80 12/19/18 08:10 Pulse Ox 98 12/19/18 08:10 - Labs Result Diagrams: 12/18/18 11:30 12/18/18 11:30 Labs: Laboratory Results - last 24 hr 12/18/18 12/18/18 12/18/18 11:03 11:30 11:30 WBC 4.0 L RBC 4.42 Hgb 13.1 Hct 39.5 MCV 89.4 MCH 29.6 MCHC 33.2 RDW 15.7 H Plt Count 231 MPV 6.8 L Neut % (Auto) 73.7 Lymph % (Auto) 10.0 L Sawyer % (Auto) 14.9 H Eos % (Auto) 0.3 Baso % (Auto) 1.1 Neut # (Auto) 2.9 Lymph # (Auto) 0.4 L Sawyer # (Auto) 0.6 Eos # (Auto) 0.0 Baso # (Auto) 0.0 PT INR APTT pO2 VBG pH VBG pCO2 VBG HCO3 VBG Total CO2 VBG O2 Sat (Calc) VBG Base Excess VBG Potassium Glucose Lactate FiO2 Sodium 134 Potassium 3.5 L Chloride 97 L Carbon Dioxide 28 Anion Gap 13 BUN 3 L Creatinine 0.5 L Est GFR ( Amer) > 60 Est GFR (Non-Af Amer) > 60 POC Glucose (mg/dL) 131 H Random Glucose 101 Calcium 9.2 Total Bilirubin 1.0 AST 52 H ALT 36 Alkaline Phosphatase 77 Troponin I < 0.0120 Total Protein 7.5 Albumin 4.7 Globulin 2.8 Albumin/Globulin Ratio 1.6 Lipase 300 Venous Blood Potassium Urine Color Urine Clarity Urine pH Ur Specific Max Urine Protein Urine Glucose (UA) Urine Ketones Urine Blood Urine Nitrate Urine Bilirubin Urine Urobilinogen Ur Leukocyte Esterase Urine RBC (Auto) Urine Microscopic WBC Ur Squamous Epith Cells Urine Bacteria Hyaline Casts Fluid Type CSF Volume CSF Appearance CSF WBC CSF RBC CSF Total Cell Counted CSF Monos/Macrophages CSF Comment CSF Glucose CSF Total Protein Alcohol, Quantitative < 10 HSV Source Description 12/18/18 12/18/18 12/18/18 11:30 17:50 18:13 WBC RBC Hgb Hct MCV MCH MCHC RDW Plt Count MPV Neut % (Auto) Lymph % (Auto) Sawyer % (Auto) Eos % (Auto) Baso % (Auto) Neut # (Auto) Lymph # (Auto) Sawyer # (Auto) Eos # (Auto) Baso # (Auto) PT 11.0 INR 1.0 APTT 31.3 pO2 57 H VBG pH 7.49 H VBG pCO2 30 L VBG HCO3 25.1 VBG Total CO2 23.8 VBG O2 Sat (Calc) 95.0 H VBG Base Excess 0.4 VBG Potassium 3.5 L Glucose 114 H Lactate 0.9 FiO2 21.0 Sodium 132.0 Potassium Chloride 100.0 Carbon Dioxide Anion Gap BUN Creatinine Est GFR ( Amer) Est GFR (Non-Af Amer) POC Glucose (mg/dL) Random Glucose Calcium Total Bilirubin AST ALT Alkaline Phosphatase Troponin I Total Protein Albumin Globulin Albumin/Globulin Ratio Lipase Venous Blood Potassium 3.5 L Urine Color Yellow Urine Clarity Cloudy Urine pH 9.0 Ur Specific Max 1.010 Urine Protein 100 Urine Glucose (UA) Neg Urine Ketones Negative Urine Blood Negative Urine Nitrate Negative Urine Bilirubin Negative Urine Urobilinogen 0.2-1.0 Ur Leukocyte Esterase Neg Urine RBC (Auto) 1 Urine Microscopic WBC 1 Ur Squamous Epith Cells < 1 Urine Bacteria Rare Hyaline Casts 6-10 H Fluid Type CSF Volume CSF Appearance CSF WBC CSF RBC CSF Total Cell Counted CSF Monos/Macrophages CSF Comment CSF Glucose CSF Total Protein Alcohol, Quantitative HSV Source Description 12/18/18 12/18/18 12/18/18 20:38 20:38 20:38 WBC RBC Hgb Hct MCV MCH MCHC RDW Plt Count MPV Neut % (Auto) Lymph % (Auto) Sawyer % (Auto) Eos % (Auto) Baso % (Auto) Neut # (Auto) Lymph # (Auto) Sawyer # (Auto) Eos # (Auto) Baso # (Auto) PT INR APTT pO2 VBG pH VBG pCO2 VBG HCO3 VBG Total CO2 VBG O2 Sat (Calc) VBG Base Excess VBG Potassium Glucose Lactate FiO2 Sodium Potassium Chloride Carbon Dioxide Anion Gap BUN Creatinine Est GFR ( Amer) Est GFR (Non-Af Amer) POC Glucose (mg/dL) Random Glucose Calcium Total Bilirubin AST ALT Alkaline Phosphatase Troponin I Total Protein Albumin Globulin Albumin/Globulin Ratio Lipase Venous Blood Potassium Urine Color Urine Clarity Urine pH Ur Specific Max Urine Protein Urine Glucose (UA) Urine Ketones Urine Blood Urine Nitrate Urine Bilirubin Urine Urobilinogen Ur Leukocyte Esterase Urine RBC (Auto) Urine Microscopic WBC Ur Squamous Epith Cells Urine Bacteria Hyaline Casts Fluid Type Spinal fluid CSF Volume 1 CSF Appearance Clear/colorless CSF WBC 0.0 CSF RBC 0.0 CSF Total Cell Counted 0 CSF Monos/Macrophages TEST NOT PERFORMED CSF Comment Normal CSF Glucose 70 CSF Total Protein 26.0 Alcohol, Quantitative HSV Source Description Fluid Assessment & Plan (1) Alcohol withdrawal seizure Assessment and Plan: Imaging/labs reviewed: -CTA Head and Neck (12/18/18): unremarkable CTA of the head and neck. -CT Head (12/18/18): No acute intracranial pathology identified. -CSF results (12/18/18). Pt is neurologically stable to be d/c home today. She is at baseline and has no neurological deficits. She has been instructed to follow up with Dr. Kelly in the office within 1 month. She will also need a Brain MRI for this first time seizure, but it can be done as outpatient. I have discussed ETOH detox with her and she is to resume her program at [facility]. I have also discussed seizure precautions with pt and uncle. We do not recommend starting AE at this time. Warm salt water rinse for inner cheek bites prn. All concerns, questions, and follow up information were discussed at length with the pt and her uncle. Reconsult prn. Thank you for this consultation. Ashley Lester DNP, RN NEW GRADUATE d/w Dr. Salmeron Status: Acute - Date & Time Date: 12/19/18 Time: 12:00
--- NOTE | 2018-12-19 12:55 | CT ---
Date of service: 12/18/2018 PROCEDURE: CT Angiography of the Head and Neck. HISTORY: seizure, aniscoria COMPARISON: Head CT without contrast 12/18/2018 6:37 p.m.. TECHNIQUE: CT angiography of the head and neck was performed following intravenous contrast administration. Coronal and sagittal maximum intensity projection reformatted images were generated. Contrast Dose: Visipaque 320, 90 cc Radiation dose: Total exam DLP = 323.78 mGy-cm. This CT exam was performed using one or more of the following dose reduction techniques: Automated exposure control, adjustment of the mA and/or kV according to patient size, and/or use of iterative reconstruction technique. FINDINGS: INTERNAL CEREBRAL ARTERIES: Unremarkable. The skull base, petrous, cavernous and supraclinoid segments are bilaterally widely patent. ANTERIOR CEREBRAL ARTERIES: Hypoplastic right A1 JCARLOS segment appears patent. The left A1 and bilateral A2 segments are widely patent. Smaller distal branches unremarkable, as visualized. MIDDLE CEREBRAL ARTERIES: Unremarkable. M1 and M2 segments are widely patent. Perisylvian branches grossly symmetric. POSTERIOR CIRCULATION: Basilar Artery: Unremarkable. Distal Vertebral Arteries: Right dominant vertebrobasilar circulation noted. Posterior Cerebral Arteries: Unremarkable. Posterior Inferior Cerebellar Arteries: Unremarkable. NECK CTA: Aortic Arch: Normal three vessel arch identified. Common Carotid arteries: The bilateral common carotid appear widely patent from their origins to their bifurcations with no significant stenosis appreciated. No evidence to suggest common carotid artery dissection. Internal Carotid arteries: No significant stenosis is appreciated throughout the cervical internal carotid artery segments bilaterally and there is no evidence of dissection either. External Carotid arteries: Appear unremarkable bilaterally. Vertebral arteries: The bilateral vertebral arteries appear normal in caliber from their origins to their distal cervical segments. No significant stenosis or definite pattern of dissection. ANEURYSM/ VASCULAR MALFORMATIONS: None. OTHER FINDINGS: None. IMPRESSION: Unremarkable CT Angiography of the Head and Neck. No large vessel occlusion or significant stenosis appreciated on intracranial CT angiography with bilateral common and internal carotid arteries as well as vertebral arteries widely patent throughout.
[2018-12-19 16:03] VITALS: BP 113/77; TEMP 98.6
[2018-12-19 16:31] VITALS: PULSE 99; O2SAT 100
--- NOTE | 2018-12-20 05:13 | DS ---
REASON FOR ADMISSION: This is a 33-year-old female, who was admitted with alcohol withdrawal seizure. COURSE OF HOSPITALIZATION: The patient was admitted to telemetry floor and she had no alcohol withdrawal seizure activity. The patient had two CAT scans of the head done as well as CT angiogram and did not show any significant abnormality. She also had an LP done in the emergency room and that was normal CSF that ruled out any intracranial infection. The patient was feeling very good and she was discharged home with her uncle, who was bringing her to alcohol rehabilitation facility. FINAL DIAGNOSES: Alcohol abuse and possible alcohol withdrawal seizure. The patient will be following with her primary care physician and neurologist. [facility] MD Vamshi
[2018-12-20 16:37] LABS: SPECIMEN SOURCE CSF
== END 2018-12-19 16:25 | disposition home or self-care (01) | DRG 101 ==
LOC: H.ER 10:45 → H.ERHOLD 14:07 → H.TEL 22:58
PROVIDERS: ADMIT Internal Medicine; ATTEND Internal Medicine
PROC: 3E0234Z Introduction of Serum, Toxoid and Vaccine into Muscle, Percutaneous Approach (ICD-10-PCS; principal; 2018-12-19)
DX: G40.509 Epileptic seizures related to external causes, not intractable, without status epilepticus (principal); F10.239 Alcohol dependence with withdrawal, unspecified; F32.9 Major depressive disorder, single episode, unspecified; F41.9 Anxiety disorder, unspecified; F17.200 Nicotine dependence, unspecified, uncomplicated; Z85.05 Personal history of malignant neoplasm of liver; Z23 Encounter for immunization